=== PATIENT | male | born 1965 | race Two or more races ===

== ENCOUNTER → 2019-04-22 | Outpatient (CLI) | payer MEDICARE ==
[~2019-04-22] MED LIST: GADOTERATE 5 MMOL/10ML VIAL. IVP ONE
--- NOTE | 2019-04-22 17:21 | KCIC ---
MRI Brain with and without contrast History:Paralysis agitans,Parkinson's diagnosed about 10 years ago, tremors Technique: Multiplanar, multi sequential pre and postcontrast MR imaging was performed of the brain. Comparison: None Findings: There is some motion degradation. There is no evidence of recent infarct or cytotoxic edema. Ventricular size is within normal limits. There is mild prominence of biparietal subarachnoid spaces of uncertain chronicity.There is no significant midline shift, intraaxial mass effect, or focal abnormal extra-axial fluid collection. There are a few scattered tiny foci of nonenhancing T2 and FLAIR hypertense signal of the bifrontal deep white matter. There is no nodular parenchymal or leptomeningeal enhancement. There is preservation of the major intracranial flow-voids at the skull base. The cerebellar tonsils are normal in location. There is no significant abnormality of the pineal gland or pituitary gland. There is patchy minimal ethmoid air cell mucosal thickening, also more focal mucous retention cyst or confluent mucosal thickening of right ethmoid air cell anteriorly. There is very minimal fluid right mastoid air cells. There is nonspecific heterogeneity of the marrow of the nonexpanded clivus. There are some extra-axial foci of signal change along the posterior margins near the petroclival ligaments bilaterally apparently contiguous with the bone, likely developmental variant. Impression: 1. There are a few small foci of nonenhancing, likely nonspecific gliosis of the bifrontal white matter. There is no abnormal intracranial enhancement or evidence of recent infarct. There is mild prominence of the bilateral parietal subarachnoid spaces of uncertain chronicity. 2. There is nonspecific heterogeneity of the marrow of the clivus, no bony expansion, some signal change posteriorly near the level of the petroclival ligaments favored to be developmental variant.. Electronically signed by: Stephan Rondon MD (04/22/2019 5:18 PM) [id number]
== END | disposition home or self-care (01) ==
LOC: KCIC MRI 14:24
PROVIDERS: ATTEND Psychiatry & Neurology Neurology with Special Qualifications in Child Neurology
DX: J34.89 Other specified disorders of nose and nasal sinuses (principal); G20 Parkinson's disease
CPT/HCPCS: 70553; A9575